=== PATIENT | female | born 1945 | race Caucasian/White ===

== ENCOUNTER 2019-01-08 21:57 | Emergency (ER) | payer MEDICARE ==
[2019-01-08] MEDS ORDERED: methylPREDNISolone Sod Succ/PF 125 MG/2 ML VIAL ONE (22:29)
[2019-01-08] MEDS ORDERED: diphenhydrAMINE 50 MG/ML VIAL ONE (22:29)
[2019-01-08] MEDS ORDERED: Famotidine In NaCl 20 mg/50 ml Premix Bag ONE (22:29)
[2019-01-08] MEDS ORDERED: EPINEPHrine 1 mg/ml MDV (1ml Charge) ONE (22:51)
== END 2019-01-08 23:25 | disposition home or self-care (01) ==
LOC: BURERS 21:57
DX: T78.3XXA Angioneurotic edema, initial encounter (principal); I10 Essential (primary) hypertension; Z79.899 Other long term (current) drug therapy
CPT/HCPCS: 96365; 96375; J0171; J1200; J2930

== ENCOUNTER 2019-05-02 01:39 | Emergency (ER) | payer MEDICARE ==
[2019-05-02] MEDS ORDERED: Famotidine 20 MG TAB ONE ×2 (01:55→01:57)
[2019-05-02] MEDS ORDERED: hydrOXYzine 25 MG TAB ONE (01:55)
[2019-05-02] MEDS ORDERED: methylPREDNISolone Sod Succ/PF 125 MG/2 ML VIAL ONE (01:55)
== END 2019-05-02 02:42 | disposition home or self-care (01) ==
LOC: BURERS 01:39
DX: T78.3XXA Angioneurotic edema, initial encounter (principal); I10 Essential (primary) hypertension; Z79.82 Long term (current) use of aspirin; Z79.899 Other long term (current) drug therapy
CPT/HCPCS: 96372; 99283; J2930